=== PATIENT | male | born 1955 | race Caucasian/White ===

== ENCOUNTER 2018-04-07 03:21 | Inpatient (IN) | payer MEDICARE, MEDICAID ==
--- NOTE | 2018-04-07 03:50 | ED Physician Chart ---
ED Chief Complaint/HPI - Patient Information Date Seen:: 04/07/18 Time Seen:: 03:46 Chief Complaint:: fever History of Present Illness:: this is a 62 yr old male sent from a snf for an evaluation and treatment of a fever. Allergies:: Allergies Allergy/AdvReac Type Severity Reaction Status Date / Time No Known Allergies Allergy Verified 04/07/18 03:36 Historian:: Medical Records Review:: Nurse's Note Reviewed, Old Chart Reviewed ED Review of Systems - Review of Systems General/Constitutional: No fever, No chills, No weight loss, No weakness, No diaphoresis, No edema, No loss of appetite, Other (this patient is unable to give a review of systems.) Skin: No skin lesions, No rash, No bruising Head: No headache, No light-headedness Eyes: No loss of vision, No pain, No diplopia ENT: No earache, No nasal drainage, No sore throat, No tinnitus Neck: No neck pain, No swelling, No thyromegaly, No stiffness, No mass noted Cardio Vascular: No chest pain, No palpitations, No PND, No orthopnea, No edema Pulmonary: No SOB, No cough, No sputum, No wheezing GI: No nausea, No vomiting, No diarrhea, No pain, No melena, No hematochezia, No constipation, No hematemesis G/U: No dysuria, No frequency, No hematuria Musculoskeletal: No bone or joint pain, No back pain, No muscle pain Endocrine: No polyuria, No polydipsia Psychiatric: No prior psych history, No depression, No anxiety, No suicidal ideation Hematopoietic: No bruising, No lymphadenopathy Allergic/Immuno: No urticaria, No angioedema Neurological: No syncope, No focal symptoms, No weakness, No paresthesia, No headache, No seizure, No dizziness, No confusion, No vertigo ED Past Medical History - Past Medical History Obtainable: Yes Past Medical History: HTN, Dyslipidemia, Seizures, Thyroid disorder, Dementia Family History: None Social History: Non Smoker, No Alcohol, No Drug Use, Care Facility Surgical History: None Psychiatricy History: Schizophrenia, Dementia Medication: Reviewed Family Medical History - Family Member Mother History Unknown: Yes ED Physical Exam - Physical Examination General/Constitutional: Awake, Well-developed, well-nourished, Alert, No distress, GCS 15, Non-toxic appearing, Ambulatory Other Gen/Cons comments:: screaming and combative Head: Atraumatic Eyes: Lids, conjuctiva normal, PERRL, EOMI Skin: Nl inspection, No rash, No skin lesions, No ecchymosis, Well hydrated, No lymphadenopathy ENMT: External ears, nose nl, Nasal exam nl, Lips, teeth, gums nl Neck: Nontender, Full ROM w/o pain, No JVD, No nuchal rigidity, No bruit, No mass, No stridor Respiratory: Nl effort/Exclusion, Clear to Auscultation, No Wheeze/Rhonchi/Rales Cardio Vascular: RRR, No murmur, gallop, rubs, NL S1 S2 GI: No tenderness/rebounding/guarding, No organomegaly, No hernia, Normal BS's, Nondistended, No mass/bruits, No McBurney tenderness : No CVA tenderness Extremities: No tenderness or effusion, Full ROM, normal strength in all extremities, No edema, Normal digits & nails Neuro/Psych: Alert/oriented, DTR's symmetric, Normal sensory exam, Normal motor strength, Judgement/insight normal, Mood normal, Normal gait, No focal deficits Misc: Normal back, No paraspinal tenderness ED Labs/Radiology/EKG Results - EKG Interpretations EKG Time:: 04:14 Rate & Rhythm: rate= 119, sinus [place]: right axis ED Assessment - Assessment General Assessment: hypoxemia fever dementia ED Septic Shock - . Is Septic Shock (SBP<90, OR Lactate>4 mmol\L) present?: No ED Reassessment (Disposition) - Diagnosis Diagnosis:: hypoxemia - Patient Disposition Discharge/Transfer:: Acute Care w/in this hosp Admitted to:: Telemetry Admitting Medical Physician:: José Miguel Gautam Condition at Disposition:: Improved
[2018-04-07] MEDS ORDERED: Sodium Chloride 0.45% 1,000 ML IV ONE (03:59)
[2018-04-07 04:10] LABS: PaCO2 41.8 mmHg (35.0-45.0); pH 7.39 (7.35-7.45)
[2018-04-07 04:37] LABS: % BASOPHILS 0.2 % (0.0-2.0); % EOSINOPHILS 0.2 % (0.0-5.0); % LYMPHOCYTES 10.3 % (20.0-50.0); % MONOCYTES 7.6 % (2.0-10.0); % NEUTROPHILS 81.7 % (40.0-80.0); HEMATOCRIT 44.1 % (41.0-60); HEMOGLOBIN 14.4 gm/dL (12-16); LYMPHOCYTE ABSOLUTE 0.9 Th/cmm (1.5-3.0); MEAN CELL VOLUME 89.9 fl (80-99); MEAN CORPUSCULAR HEMOGLOBIN 29.2 pg (26.0-30.0); MEAN CORPUSCULAR HGB CONC 32.5 pg (28.0-36.0); MEAN PLATELET VOLUME 8.8 fl; MONOCYTE ABSOLUTE 0.7 Th/cmm (0.3-1.0); NEUTROPHILE ABSOLUTE 7.1 Th/cmm (1.8-8.0); PLATELET COUNT 217 Th/cmm (150-400); RED BLOOD COUNT 4.91 Mil/cmm (4.30-5.70); RED CELL DISTRIBUTION WIDTH 14.5 % (11.5-20.0); WHITE BLOOD COUNT 8.7 Th/cmm (4.8-10.8)
[2018-04-07 04:38] LABS: ALB/GLOB RATIO 1.4 (1.0-1.8); ALBUMIN 3.1 gm/dL (4.2-5.5); ANION GAP 11.1 (7.0-16.0); BILIRUBIN,TOTAL 0.5 mg/dL (0.3-1.0); BUN - UREA NITROGEN 26 mg/dL (7-25); CALCIUM SERUM 9.6 mg/dL (8.6-10.3); CARBON DIOXIDE 24.5 mEq/L (21.0-31.0); CHLORIDE 105 mEq/L (98-107); GLUCOSE 110 mg/dL (70-105); POTASSIUM SERUM 4.6 mEq/L (3.5-5.1); SGOT 16 U/L (13-39); SGPT/ALT 9 U/L (7-52); SODIUM SERUM 136 mEq/L (136-145); TOTAL PROTEIN,SERUM 5.4 gm/dL (6.0-8.3)
[2018-04-07 04:39] LABS: ALKALINE PHOSPHATASE 49 U/L (34-104); INR 1.09 (0.5-1.4); PROTHROMBIN TIME (TEST) 11.3 SECONDS (9.5-11.5)
[2018-04-07] MEDS ORDERED: Haloperidol Lactate 5 mg/mL 1mL Vial IM ONE (05:09)
[2018-04-07] MEDS ORDERED: Haloperidol Lactate 5 mg/mL 1mL Vial ONE (06:16)
[2018-04-07] MEDS ORDERED: Pantoprazole 80 MG in Sodium Chloride 0.9% 100 ML IV ONE (07:14)
[2018-04-07] MEDS ORDERED: Pantoprazole 80 MG in Sodium Chloride 0.9% 100 ML IV SCH (07:15)
[2018-04-07 07:42] LABS: MAGNESIUM 1.6 mg/dL (1.9-2.7); PHOSPHOROUS 2.4 mg/dL (2.5-5.0)
[2018-04-07 07:54] LABS: CREATININE - SERUM 1.1 mg/dL (0.7-1.3); GFR AFRICAN-AMERICAN > 60.0 ml/min (>90); GFR NON AFRICAN-AMERICAN > 60.0 ml/min
[2018-04-07 08:17] LABS: URINE BILIRUBIN NEGATIVE (NEGATIVE); URINE BLOOD MODERATE (NEGATIVE); URINE GLUCOSE (UA) NEGATIVE (NEGATIVE); URINE KETONE NEGATIVE (NEGATIVE); URINE LEUKOCYTE ESTERASE SMALL (NEGATIVE); URINE MICROSCOPIC INDICATED? YES; URINE NITRATE NEGATIVE (NEGATIVE); URINE PROTEIN 100 mg/dL (NEGATIVE); URINE SOURCE CATH; URINE UROBILINOGEN 0.2 E.U./dL (0.2 - 1.0)
[2018-04-07 08:31] LABS: URINE CLARITY CLOUDY (CLEAR); URINE COLOR YELLOW
[2018-04-07 08:34] LABS: URINE BACTERIA OCCASIONAL /hpf (NONE SEEN); URINE EPITHELIAL CELLS RARE /lpf (FEW); URINE WBC 50-100 /hpf (0-5)
[2018-04-07] MEDS ORDERED: Magnesium Sulfate 1 gm/2 mL 2mL Vial IV ONE (08:35)
[2018-04-07] MEDS ORDERED: guaiFENesin 200 MG/10 ML UDC PO PRN (09:54)
[2018-04-07] MEDS ORDERED: Ipratropium Neb 0.5 mg/2.5 mL UD HHN PRN (09:54)
[2018-04-07] MEDS ORDERED: Magnesium Hydroxide (MOM) 30 mL UDC PO PRN (09:54)
[2018-04-07] MEDS ORDERED: Fleet Enema 135 mL RC PRN (09:54)
--- NOTE | 2018-04-07 10:04 | Diagnostic Imaging Report ---
Exam: Chest x-ray HISTORY: Hypothermia Findings: Frontal examination of the chest was reviewed compared to prior study 04/03/2018 demonstrates no active pulmonic infiltrates or effusions. IMPRESSION no acute disease.
[2018-04-07] MEDS ORDERED: Albuterol Nebulizer 2.5mg/3mL HHN ONE (11:19)
[2018-04-07] MEDS ORDERED: Ipratropium Neb 0.5 mg/2.5 mL UD HHN ONE (11:19)
[2018-04-07] MEDS: Albuterol Nebulizer 2.5mg/3mL HHN SCH ×3 (11:20→19:03)
[2018-04-07] MEDS: Ipratropium Neb 0.5 mg/2.5 mL UD IH SCH ×3 (11:20→19:03)
[2018-04-07] MEDS: D5-0.45NS 1,000 ML IV SCH (11:35)
[2018-04-07] MEDS ORDERED: Potassium Phosphate 30 MMOLE in Sodium Chloride 0.9% 250 ML IV ONE (12:14)
--- NOTE | 2018-04-07 13:10 | History & Physical ---
ADMIT DATE: 04/07/2018 CHIEF COMPLAINT: Fever and coffee-ground emesis. HISTORY OF PRESENT ILLNESS: This is a 62-year-old male, well known to my service, recently discharged to nursing facility, apparently developed fever of 101. The patient also noted to have a low oxygen saturation, pO2 of 60. The patient is not verbal and not interactive. PAST MEDICAL HISTORY: As mentioned in history of present illness. PAST SURGICAL HISTORY: Unable to obtain from the patient. ALLERGIES: No known drug allergies. MEDICATIONS: Depakote, clonazepam, Tylenol, aspirin, Bisacodyl, Pulmicort, Lexapro, guaifenesin, Synthroid, lorazepam, nitroglycerin, Zofran, pantoprazole, trazodone, and Ambien. FAMILY HISTORY: Noncontributory. SOCIAL HISTORY: The patient is a [facility] patient requiring 24-hour total care. The patient was ____ care. We will also try to get information from other family member, Steffanie ____ [phone]. PHYSICAL EXAMINATION: VITAL SIGNS: Blood pressure 160/67, respirations 20, pulse 102, temperature 98.6. GENERAL: Elderly male, appears chronically ill. NECK: Supple. No mass. LUNGS: Equal breath sounds, few rhonchi. HEART: Regular rate and rhythm with systolic ejection murmur. ABDOMEN: Soft, globular, positive bowel sounds. EXTREMITIES: Positive excoriation. NEUROLOGIC: Limited. LABORATORY DATA: WBC 8, hemoglobin 14, platelets 217, pO2 of 60. Sodium 137, potassium 4.6, BUN 26, creatinine 1.1, blood sugar 110. Magnesium ____, albumin 3.1. UA shows 100 wbc's. ASSESSMENT AND PLAN: Fever and urinary tract infection, possible sepsis, possible aspiration, possible pneumonia, dysphagia, hypertension, schizoaffective disorder, hyperkalemia, renal insufficiency, possible GI bleeding. Continue the patient also on bronchodilator treatment. We will check a chest x-ray. Continue IV antibiotic. We will follow the patient's urine culture as well. We will perform chest x-ray in the morning. Continue with current care. We will follow consultants' recommendations. We will refer the patient to Psychiatry as well. JOB# [id number]
[2018-04-07 14:56] VITALS: BP 145/97
[2018-04-07] MEDS: Budesonide 0.5 Mg/2 mL Ud HHN SCH (19:03)
[2018-04-07] MEDS ORDERED: TERAZOSIN HCL 2 MG PO SCH (21:00)
[2018-04-08 05:16] LABS: % BASOPHILS 0.1 % (0.0-2.0); % EOSINOPHILS 1.5 % (0.0-5.0); % LYMPHOCYTES 20.8 % (20.0-50.0); % MONOCYTES 10.7 % (2.0-10.0); % NEUTROPHILS 66.9 % (40.0-80.0); EOSINOPHILE ABSOLUTE 0.1 Th/cmm (0.1-0.4); HEMATOCRIT 36.7 % (41.0-60); HEMOGLOBIN 12.3 gm/dL (12-16); LYMPHOCYTE ABSOLUTE 1.2 Th/cmm (1.5-3.0); MEAN CELL VOLUME 91.3 fl (80-99); MEAN CORPUSCULAR HEMOGLOBIN 30.6 pg (26.0-30.0); MEAN CORPUSCULAR HGB CONC 33.5 pg (28.0-36.0); MEAN PLATELET VOLUME 8.2 fl; MONOCYTE ABSOLUTE 0.6 Th/cmm (0.3-1.0); NEUTROPHILE ABSOLUTE 3.8 Th/cmm (1.8-8.0); PLATELET COUNT 179 Th/cmm (150-400); RED BLOOD COUNT 4.02 Mil/cmm (4.30-5.70); RED CELL DISTRIBUTION WIDTH 14.3 % (11.5-20.0); WHITE BLOOD COUNT 5.7 Th/cmm (4.8-10.8)
[2018-04-08 05:58] LABS: ANION GAP 9.8 (7.0-16.0); BUN - UREA NITROGEN 17 mg/dL (7-25); CALCIUM SERUM 8.9 mg/dL (8.6-10.3); CARBON DIOXIDE 27.3 mEq/L (21.0-31.0); CHLORIDE 102 mEq/L (98-107); CREATININE - SERUM 0.8 mg/dL (0.7-1.3); GFR AFRICAN-AMERICAN > 60.0 ml/min (>90); GFR NON AFRICAN-AMERICAN > 60.0 ml/min; GLUCOSE 97 mg/dL (70-105); MAGNESIUM 1.6 mg/dL (1.9-2.7); PHOSPHOROUS 2.5 mg/dL (2.5-5.0); POTASSIUM SERUM 4.1 mEq/L (3.5-5.1); SODIUM SERUM 135 mEq/L (136-145)
[2018-04-08] MEDS: Pantoprazole 40 mg EC Tab PO SCH (06:47)
[2018-04-08] MEDS: Levothyroxine 0.025 Mg Tab PO SCH (06:47)
[2018-04-08] MEDS: Budesonide 0.5 Mg/2 mL Ud HHN SCH ×2 (07:35→19:21)
[2018-04-08] MEDS: Albuterol Nebulizer 2.5mg/3mL HHN SCH ×4 (07:35→19:21)
[2018-04-08] MEDS: Ipratropium Neb 0.5 mg/2.5 mL UD IH SCH ×4 (07:35→19:21)
--- NOTE | 2018-04-08 08:56 | Consultation ---
DATE OF CONSULTATION: 04/07/2018 REASON FOR CONSULTATION: GI bleed. HISTORY OF PRESENT ILLNESS: This consult was obtained through the courtesy of Dr. Gautam for this 62-year-old with history of hypertension, hyperlipidemia, hypothyroidism, psych disorder, transferred back because of coffee-ground emesis. The patient lives in an assisted living. He was here for failure to thrive, but it improved. He was discharged yesterday, coming again today with coffee-ground emesis. The patient is not able to provide any history, but he denies any active complaint. PAST MEDICAL HISTORY: Hypertension, hypothyroidism, hyperlipidemia, psych disorder. PAST SURGICAL HISTORY: Not known. SOCIAL HISTORY: Nonsmoker, nonalcoholic, IV drug abuser. FAMILY HISTORY: Noncontributory. ALLERGIES: No known drug allergies. MEDICATIONS: The patient is on Tylenol, albuterol, aspirin, aztreonam, Dulcolax, Pulmicort, cefepime, Depakote, Lexapro, Robitussin, Atrovent, Synthroid, Ativan, milk of magnesia, Nitrostat, Zofran, Protonix, Seroquel, Fleets enema, Ambien. REVIEW OF SYSTEMS: Unobtainable. PHYSICAL EXAMINATION: GENERAL: The patient is awake, oriented to self. VITAL SIGNS: Blood pressure is 139/100, heart rate 104, respiratory rate 21, temperature is 99.2. HEAD AND NECK: Pupils reactive to light. Extraocular muscles could not be tested. Oral cavity, dry mucous membrane. NECK: Supple. CHEST: Good air entry. LUNGS: Clear to auscultation. CARDIOVASCULAR SYSTEM: Regular rate and rhythm. No murmur or gallop. ABDOMEN: Soft, positive bowel sounds, not tender, not distended. Bowel sounds are present. EXTREMITIES: Lower extremities, no edema. CENTRAL NERVOUS SYSTEM: The patient moving 4 extremities. LABS: CBC was unremarkable. Chemistry showed BUN of 26, phosphorus 2.4, magnesium 1.6. Albumin is 3.1. Urine showed 100 mg protein, 5-10 rbc's, 50-100 white blood cells, valproic acid was 9.7. IMPRESSION: A 62-year-old sent from alf for fever, now with coffee-ground emesis. ASSESSMENT AND PLAN: 1. Coffee-ground emesis, could be from gastritis, could be small ulcer, could be Funmilayo-Villagomez tear, could be peptic ulcer disease, less likely upper gastrointestinal malignancy. RECOMMENDATIONS: 1. Monitor hemoglobin and hematocrit. 2. Transfuse as needed. 3. Continue with Protonix. 4. Once the fever issue is sorted out. Consideration will be for an upper endoscopy. 2. Fever. It seems the patient might have a urinary tract infection. He is on antibiotics. Culture has been sent. Further plan as per Dr. Gautam. Other medical problems such as hypertension, hyperlipidemia, hypothyroidism and Psych disorder as per Dr. Gautam. Thank you, Dr. Gautam, for allowing me to participate in the care of the patient. If you have any further questions, please let me know. JOB# [id number]
--- NOTE | 2018-04-08 09:07 | GI Progress Note ---
Subjective - Review of Systems Service Date: 04/08/18 Subjective: Eating, no further coffee ground emesis Objective - Results Result Diagrams: 04/08/18 04:35 04/08/18 04:35 Recent Labs: Laboratory Last Values WBC 5.7 Th/cmm (4.8-10.8) 04/08/18 04:35 RBC 4.02 Mil/cmm (4.30-5.70) L 04/08/18 04:35 Hgb 12.3 gm/dL (12-16) 04/08/18 04:35 Hct 36.7 % (41.0-60) L 04/08/18 04:35 MCV 91.3 fl (80-99) 04/08/18 04:35 MCH 30.6 pg (26.0-30.0) H 04/08/18 04:35 MCHC Differential 33.5 pg (28.0-36.0) 04/08/18 04:35 RDW 14.3 % (11.5-20.0) 04/08/18 04:35 Plt Count 179 Th/cmm (150-400) 04/08/18 04:35 MPV 8.2 fl 04/08/18 04:35 Neutrophils % 66.9 % (40.0-80.0) 04/08/18 04:35 Lymphocytes % 20.8 % (20.0-50.0) 04/08/18 04:35 Monocytes % 10.7 % (2.0-10.0) H 04/08/18 04:35 Eosinophils % 1.5 % (0.0-5.0) 04/08/18 04:35 Basophils % 0.1 % (0.0-2.0) 04/08/18 04:35 PT 11.3 SECONDS (9.5-11.5) 04/07/18 04:00 INR 1.09 (0.5-1.4) 04/07/18 04:00 Specimen Source arterial 04/07/18 03:39 Sample Site left brachial 04/07/18 03:39 pH 7.39 (7.35-7.45) 04/07/18 03:39 pCO2 41.8 mmHg (35.0-45.0) 04/07/18 03:39 pO2 60.0 mmHg (80.0-100.0) L 04/07/18 03:39 HCO3 25.1 mEq/L (20.0-26.0) 04/07/18 03:39 Base Excess 0.1 mEq/L (-3.0-3.0) 04/07/18 03:39 O2 Saturation 90.0 % (92.0-100.0) L 04/07/18 03:39 Pasha Test n/a 04/07/18 03:39 Vent Rate n/a 04/07/18 03:39 Inspired O2 28 04/07/18 03:39 Tidal Volume n/a 04/07/18 03:39 PEEP n/a 04/07/18 03:39 Pressure (ins/psv/peep) n/a 04/07/18 03:39 Critical Value abroedel 04/07/18 03:39 Sodium 135 mEq/L (136-145) L 04/08/18 04:35 Potassium 4.1 mEq/L (3.5-5.1) 04/08/18 04:35 Chloride 102 mEq/L (98-107) 04/08/18 04:35 Carbon Dioxide 27.3 mEq/L (21.0-31.0) 04/08/18 04:35 Anion Gap 9.8 (7.0-16.0) 04/08/18 04:35 BUN 17 mg/dL (7-25) 04/08/18 04:35 Creatinine 0.8 mg/dL (0.7-1.3) 04/08/18 04:35 Est GFR ( Amer) > 60.0 ml/min (>90) 04/08/18 04:35 Est GFR (Non-Af Amer) > 60.0 ml/min 04/08/18 04:35 BUN/Creatinine Ratio 21.3 04/08/18 04:35 Glucose 97 mg/dL (70-105) 04/08/18 04:35 Whole Bld Lactic Acid 1.95 mmol/L (0.60-1.99) 04/07/18 07:19 Calcium 8.9 mg/dL (8.6-10.3) 04/08/18 04:35 Phosphorus 2.5 mg/dL (2.5-5.0) 04/08/18 04:35 Magnesium 1.6 mg/dL (1.9-2.7) L 04/08/18 04:35 Total Bilirubin 0.5 mg/dL (0.3-1.0) 04/07/18 04:00 AST 16 U/L (13-39) 04/07/18 04:00 ALT 9 U/L (7-52) 04/07/18 04:00 Alkaline Phosphatase 49 U/L (34-104) 04/07/18 04:00 Ammonia 42 umol/L (16-53) 04/07/18 04:00 Troponin I 0.01 ng/mL (0.01-0.05) 04/07/18 04:00 B-Natriuretic Peptide 31.4 pg/mL (5.0-100.0) 04/08/18 04:35 Total Protein 5.4 gm/dL (6.0-8.3) L 04/07/18 04:00 Albumin 3.1 gm/dL (4.2-5.5) L 04/07/18 04:00 Globulin 2.3 gm/dL 04/07/18 04:00 Albumin/Globulin Ratio 1.4 (1.0-1.8) 04/07/18 04:00 TSH 2.19 uIU/ml (0.34-5.60) 04/07/18 04:00 Urine Source CATH 04/07/18 08:00 Urine Color YELLOW 04/07/18 08:00 Urine Clarity CLOUDY (CLEAR) 04/07/18 08:00 Urine pH 6.0 (4.6 - 8.0) 04/07/18 08:00 Ur Specific [place] >= 1.030 (1.005-1.030) 04/07/18 08:00 Urine Protein 100 mg/dL (NEGATIVE) H 04/07/18 08:00 Urine Glucose (UA) NEGATIVE mg/dL (NEGATIVE) 04/07/18 08:00 Urine Ketones NEGATIVE mg/dL (NEGATIVE) 04/07/18 08:00 Urine Blood MODERATE (NEGATIVE) H 04/07/18 08:00 Urine Nitrate NEGATIVE (NEGATIVE) 04/07/18 08:00 Urine Bilirubin NEGATIVE (NEGATIVE) 04/07/18 08:00 Urine Urobilinogen 0.2 E.U./dL (0.2 - 1.0) 04/07/18 08:00 Ur Leukocyte Esterase SMALL (NEGATIVE) H 04/07/18 08:00 Urine RBC 5-10 /hpf (0-5) H 04/07/18 08:00 Urine WBC 50-100 /hpf (0-5) H 04/07/18 08:00 Ur Epithelial Cells RARE /lpf (FEW) 04/07/18 08:00 Urine Bacteria OCCASIONAL /hpf (NONE SEEN) 04/07/18 08:00 Valproic Acid 49.7 ug/mL (50.0-100.0) L 04/07/18 04:00 - Physical Exam Vitals and I&O: Vital Signs Temp 98.2 F 04/08/18 08:00 Pulse 111 04/08/18 08:00 Resp 18 04/08/18 08:00 BP 138/73 04/08/18 08:00 Pulse Ox 98 04/08/18 08:00 Intake & Output 04/07/18 04/08/18 04/08/18 18:59 06:59 18:59 Intake Total 2258.667 563.333 Balance 2258.667 563.333 Weight (lbs) 73.21 kg 74.843 kg Intake: Intake, IV Amount 2158.667 453.333 Cefepime 1 gm In Dextrose 50 5% 50 ml @ 100 mls/hr IV Q12HR [facility] Rx#:[id number] D5-0.45NS 1,000 ml @ 80 546.667 453.333 mls/hr IV .[id number] [facility] Rx #:[id number] Pantoprazole 80 mg In 100 Sodium Chloride 0.9% 100 ml @ 10 mls/hr IV Q10H [facility] Rx#:[id number] Oral 100 110 Other: # Voids 2 3 # Bowel Movements 0 0 Weight Source Bedscale Bedscale Active Medications: Current Medications Acetaminophen (Tylenol) 650 mg PO Q4H PRN PRN Reason: Mild Pain 1-3/ Fever above 101 Stop: 06/06/18 09:53 Albuterol Sulfate (Albuterol 2.5mg/3ml Neb Ud) 2.5 mg HHN QIDRT [facility] Stop: 06/06/18 10:59 Last Admin: 04/08/18 07:35 Dose: 2.5 mg Aspirin (Ecotrin) 81 mg PO DAILY [facility] Stop: 06/07/18 08:59 Bisacodyl (Dulcolax 10 Mg Supp) 10 mg RC DAILY PRN PRN Reason: Constipation Stop: 06/06/18 09:53 Budesonide (Pulmicort) 0.5 mg HHN BIDRT [facility] Stop: 06/06/18 18:59 Last Admin: 04/08/18 07:35 Dose: 0.5 mg Divalproex Sodium (Depakote Dr) 250 mg PO TID [facility]; Protocol Stop: 06/06/18 13:59 Last Admin: 04/07/18 20:59 Dose: 250 mg Escitalopram Oxalate (Lexapro) 10 mg PO DAILY [facility]; Protocol Stop: 06/07/18 08:59 Guaifenesin (Robitussin) 200 mg PO Q4HR PRN PRN Reason: Cough or Congestion Stop: 06/06/18 09:53 Cefepime HCl 1 gm/ Dextrose 50 mls @ 100 mls/hr IV Q12HR [facility] Stop: 06/06/18 09:59 Last Admin: 04/07/18 20:55 Dose: 100 mls/hr Dextrose/Sodium Chloride (D5-0.45ns) 1,000 mls @ 80 mls/hr IV .[id number] [facility] Stop: 06/06/18 09:59 Last Infusion: 04/08/18 06:59 Dose: Infused Ipratropium [place] (Atrovent Neb 0.5mg/2.5ml) 0.5 mg HHN Q2HRT PRN PRN Reason: Shortness of Breath or Wheeze Stop: 06/06/18 09:53 Ipratropium [place] (Atrovent Neb 0.5mg/2.5ml) 0.5 mg IH QIDRT [facility] Stop: 06/06/18 10:59 Last Admin: 04/08/18 07:35 Dose: 0.5 mg Levothyroxine Sodium (Synthroid) 0.025 mg PO QDAC [facility] Stop: 06/07/18 07:29 Last Admin: 04/08/18 06:47 Dose: 0.025 mg Lorazepam (Ativan) 0.5 mg PO Q6HR PRN; Protocol PRN Reason: Agitation Stop: 06/06/18 09:53 Last Admin: 04/08/18 01:38 Dose: 0.5 mg Magnesium Hydroxide (Milk Of Magnesia) 30 ml PO DAILY PRN PRN Reason: Constipation Stop: 04/11/19 09:53 Nitroglycerin (Nitrostat) 0.4 mg SL Q5MIN PRN PRN Reason: Chest Pain Stop: 06/06/18 09:53 Ondansetron HCl (Zofran) 4 mg IV Q8H PRN PRN Reason: Nausea / Vomiting Stop: 06/06/18 09:53 Pantoprazole Sodium (Protonix) 40 mg PO QDAC [facility] Stop: 06/07/18 07:29 Last Admin: 04/08/18 06:47 Dose: 40 mg Quetiapine Fumarate (Seroquel) 100 mg PO TID [facility]; Protocol Stop: 06/06/18 13:59 Sodium Phosphate (Fleet Enema) 135 ml RC DAILY PRN PRN Reason: Constipation Stop: 06/06/18 09:53 Terazosin HCl (Hytrin) 2 mg PO HS [facility] Stop: 06/06/18 20:59 Last Admin: 04/07/18 20:58 Dose: 2 mg Trazodone HCl (Desyrel) 300 mg PO HS [facility] Stop: 06/06/18 20:59 Zolpidem Tartrate (Ambien) 10 mg PO HS PRN PRN Reason: Insomnia Stop: 06/06/18 09:53 General: Alert HEENT: Atraumatic Cardiovascular: Regular rate Abdomen: Bowel sounds, Soft, no Tender, no Hepatomegaly, no Splenomegaly, no Distended, no Rebound, no Mass, no Guarding Extremities: no Clubbing, no Cyanosis Skin: no Rash Assessment/Plan - Assessment Assessment: # Hx coffee ground material on pt's mouth # Fever # Dementia At this point, pt has not vomited or shown any evidence of active GI bleed since admission. By report, this was not a large GI bleed event. EGD is not necessary in this setting unless he shows further evidence of GI bleed (ie hematemesis, melena, or more coffee ground material). Treat conservatively with PPI for now Plan: - PPI at bid dosing for 1 month, then descale to daily dosing. Conservative mgmt - diet as tolerated by pt - if any more coffee ground, or any GI bleed, we can perform EGD while here - cont supportive measures as per primary
[2018-04-08] MEDS ORDERED: Albuterol Nebulizer 2.5mg/3mL HHN ONE (10:23)
[2018-04-08] MEDS ORDERED: Ipratropium Neb 0.5 mg/2.5 mL UD HHN ONE (10:23)
[2018-04-08] MEDS: D5-0.45NS 1,000 ML IV SCH (10:35)
[2018-04-08] MEDS ORDERED: Mag Sulfate 2gm/50mL Premix 2 GM/50 ML BAG IV ONE (13:08)
--- NOTE | 2018-04-08 13:10 | Internal Medicine Prog Note ---
Internal Medicine Subjective - Subjective Patient seen and examined:: with staff, chart reviewed Patient is:: asleep, non-verbal, non-interactive, eyes closed, in bed Patient Complaints of:: congestion, cough Per staff patient has:: no adverse event, no episodes of fall, poor appetite Internal Medicine Objective - Results Result Diagrams: 04/08/18 04:35 04/08/18 04:35 Recent Labs: Laboratory Last Values WBC 5.7 Th/cmm (4.8-10.8) 04/08/18 04:35 RBC 4.02 Mil/cmm (4.30-5.70) L 04/08/18 04:35 Hgb 12.3 gm/dL (12-16) 04/08/18 04:35 Hct 36.7 % (41.0-60) L 04/08/18 04:35 MCV 91.3 fl (80-99) 04/08/18 04:35 MCH 30.6 pg (26.0-30.0) H 04/08/18 04:35 MCHC Differential 33.5 pg (28.0-36.0) 04/08/18 04:35 RDW 14.3 % (11.5-20.0) 04/08/18 04:35 Plt Count 179 Th/cmm (150-400) 04/08/18 04:35 MPV 8.2 fl 04/08/18 04:35 Neutrophils % 66.9 % (40.0-80.0) 04/08/18 04:35 Lymphocytes % 20.8 % (20.0-50.0) 04/08/18 04:35 Monocytes % 10.7 % (2.0-10.0) H 04/08/18 04:35 Eosinophils % 1.5 % (0.0-5.0) 04/08/18 04:35 Basophils % 0.1 % (0.0-2.0) 04/08/18 04:35 PT 11.3 SECONDS (9.5-11.5) 04/07/18 04:00 INR 1.09 (0.5-1.4) 04/07/18 04:00 Specimen Source arterial 04/07/18 03:39 Sample Site left brachial 04/07/18 03:39 pH 7.39 (7.35-7.45) 04/07/18 03:39 pCO2 41.8 mmHg (35.0-45.0) 04/07/18 03:39 pO2 60.0 mmHg (80.0-100.0) L 04/07/18 03:39 HCO3 25.1 mEq/L (20.0-26.0) 04/07/18 03:39 Base Excess 0.1 mEq/L (-3.0-3.0) 04/07/18 03:39 O2 Saturation 90.0 % (92.0-100.0) L 04/07/18 03:39 Pasha Test n/a 04/07/18 03:39 Vent Rate n/a 04/07/18 03:39 Inspired O2 28 04/07/18 03:39 Tidal Volume n/a 04/07/18 03:39 PEEP n/a 04/07/18 03:39 Pressure (ins/psv/peep) n/a 04/07/18 03:39 Critical Value abroedel 04/07/18 03:39 Sodium 135 mEq/L (136-145) L 04/08/18 04:35 Potassium 4.1 mEq/L (3.5-5.1) 04/08/18 04:35 Chloride 102 mEq/L (98-107) 04/08/18 04:35 Carbon Dioxide 27.3 mEq/L (21.0-31.0) 04/08/18 04:35 Anion Gap 9.8 (7.0-16.0) 04/08/18 04:35 BUN 17 mg/dL (7-25) 04/08/18 04:35 Creatinine 0.8 mg/dL (0.7-1.3) 04/08/18 04:35 Est GFR ( Amer) > 60.0 ml/min (>90) 04/08/18 04:35 Est GFR (Non-Af Amer) > 60.0 ml/min 04/08/18 04:35 BUN/Creatinine Ratio 21.3 04/08/18 04:35 Glucose 97 mg/dL (70-105) 04/08/18 04:35 Whole Bld Lactic Acid 1.95 mmol/L (0.60-1.99) 04/07/18 07:19 Calcium 8.9 mg/dL (8.6-10.3) 04/08/18 04:35 Phosphorus 2.5 mg/dL (2.5-5.0) 04/08/18 04:35 Magnesium 1.6 mg/dL (1.9-2.7) L 04/08/18 04:35 Total Bilirubin 0.5 mg/dL (0.3-1.0) 04/07/18 04:00 AST 16 U/L (13-39) 04/07/18 04:00 ALT 9 U/L (7-52) 04/07/18 04:00 Alkaline Phosphatase 49 U/L (34-104) 04/07/18 04:00 Ammonia 42 umol/L (16-53) 04/07/18 04:00 Troponin I 0.01 ng/mL (0.01-0.05) 04/07/18 04:00 B-Natriuretic Peptide 31.4 pg/mL (5.0-100.0) 04/08/18 04:35 Total Protein 5.4 gm/dL (6.0-8.3) L 04/07/18 04:00 Albumin 3.1 gm/dL (4.2-5.5) L 04/07/18 04:00 Globulin 2.3 gm/dL 04/07/18 04:00 Albumin/Globulin Ratio 1.4 (1.0-1.8) 04/07/18 04:00 TSH 2.19 uIU/ml (0.34-5.60) 04/07/18 04:00 Urine Source CATH 04/07/18 08:00 Urine Color YELLOW 04/07/18 08:00 Urine Clarity CLOUDY (CLEAR) 04/07/18 08:00 Urine pH 6.0 (4.6 - 8.0) 04/07/18 08:00 Ur Specific [place] >= 1.030 (1.005-1.030) 04/07/18 08:00 Urine Protein 100 mg/dL (NEGATIVE) H 04/07/18 08:00 Urine Glucose (UA) NEGATIVE mg/dL (NEGATIVE) 04/07/18 08:00 Urine Ketones NEGATIVE mg/dL (NEGATIVE) 04/07/18 08:00 Urine Blood MODERATE (NEGATIVE) H 04/07/18 08:00 Urine Nitrate NEGATIVE (NEGATIVE) 04/07/18 08:00 Urine Bilirubin NEGATIVE (NEGATIVE) 04/07/18 08:00 Urine Urobilinogen 0.2 E.U./dL (0.2 - 1.0) 04/07/18 08:00 Ur Leukocyte Esterase SMALL (NEGATIVE) H 04/07/18 08:00 Urine RBC 5-10 /hpf (0-5) H 04/07/18 08:00 Urine WBC 50-100 /hpf (0-5) H 04/07/18 08:00 Ur Epithelial Cells RARE /lpf (FEW) 04/07/18 08:00 Urine Bacteria OCCASIONAL /hpf (NONE SEEN) 04/07/18 08:00 Valproic Acid 49.7 ug/mL (50.0-100.0) L 04/07/18 04:00 - Physical Exam Vitals and I&O: Vital Signs Temp 98.4 F 04/08/18 12:00 Pulse 114 04/08/18 12:00 Resp 18 04/08/18 12:00 BP 165/86 04/08/18 12:00 Pulse Ox 94 04/08/18 12:00 Intake & Output 04/07/18 04/08/18 04/08/18 18:59 06:59 18:59 Intake Total 2258.667 613.333 Balance 2258.667 613.333 Weight (lbs) 73.21 kg 74.843 kg Intake: Intake, IV Amount 2158.667 503.333 Cefepime 1 gm In Dextrose 50 50 5% 50 ml @ 100 mls/hr IV Q12HR [facility] Rx#:[id number] D5-0.45NS 1,000 ml @ 80 546.667 453.333 mls/hr IV .[id number] PANDA Rx #:[id number] Pantoprazole 80 mg In 100 Sodium Chloride 0.9% 100 ml @ 10 mls/hr IV Q10H [facility] Rx#:[id number] Oral 100 110 Other: # Voids 2 3 # Bowel Movements 0 0 Weight Source Bedscale Bedscale Active Medications: Current Medications Acetaminophen (Tylenol) 650 mg PO Q4H PRN PRN Reason: Mild Pain 1-3/ Fever above 101 Stop: 06/06/18 09:53 Albuterol Sulfate (Albuterol 2.5mg/3ml Neb Ud) 2.5 mg HHN QIDRT [facility] Stop: 06/06/18 10:59 Last Admin: 04/08/18 11:17 Dose: 2.5 mg Aspirin (Ecotrin) 81 mg PO DAILY [facility] Stop: 06/07/18 08:59 Last Admin: 04/08/18 10:30 Dose: 81 mg Bisacodyl (Dulcolax 10 Mg Supp) 10 mg RC DAILY PRN PRN Reason: Constipation Stop: 06/06/18 09:53 Budesonide (Pulmicort) 0.5 mg HHN BIDRT [facility] Stop: 06/06/18 18:59 Last Admin: 04/08/18 07:35 Dose: 0.5 mg Divalproex Sodium (Depakote Dr) 250 mg PO TID [facility]; Protocol Stop: 06/06/18 13:59 Last Admin: 04/08/18 10:29 Dose: 250 mg Escitalopram Oxalate (Lexapro) 10 mg PO DAILY [facility]; Protocol Stop: 06/07/18 08:59 Guaifenesin (Robitussin) 200 mg PO Q4HR PRN PRN Reason: Cough or Congestion Stop: 06/06/18 09:53 Cefepime HCl 1 gm/ Dextrose 50 mls @ 100 mls/hr IV Q12HR [facility] Stop: 06/06/18 09:59 Last Admin: 04/08/18 10:30 Dose: 100 mls/hr Dextrose/Sodium Chloride (D5-0.45ns) 1,000 mls @ 80 mls/hr IV .[id number] [facility] Stop: 06/06/18 09:59 Last Admin: 04/08/18 10:35 Dose: 80 mls/hr Magnesium Sulfate (Magnesium Sulfate Premix) 2 gm in 50 mls @ 25 mls/hr IV X1 ONE Stop: 04/08/18 15:07 Ipratropium [place] (Atrovent Neb 0.5mg/2.5ml) 0.5 mg HHN Q2HRT PRN PRN Reason: Shortness of Breath or Wheeze Stop: 06/06/18 09:53 Ipratropium [place] (Atrovent Neb 0.5mg/2.5ml) 0.5 mg IH QIDRT [facility] Stop: 06/06/18 10:59 Last Admin: 04/08/18 11:17 Dose: 0.5 mg Levothyroxine Sodium (Synthroid) 0.025 mg PO QDAC [facility] Stop: 06/07/18 07:29 Last Admin: 04/08/18 06:47 Dose: 0.025 mg Lorazepam (Ativan) 0.5 mg PO Q6HR PRN; Protocol PRN Reason: Agitation Stop: 06/06/18 09:53 Last Admin: 04/08/18 11:48 Dose: 0.5 mg Magnesium Hydroxide (Milk Of Magnesia) 30 ml PO DAILY PRN PRN Reason: Constipation Stop: 06/06/18 09:53 Nitroglycerin (Nitrostat) 0.4 mg SL Q5MIN PRN PRN Reason: Chest Pain Stop: 06/06/18 09:53 Ondansetron HCl (Zofran) 4 mg IV Q8H PRN PRN Reason: Nausea / Vomiting Stop: 06/06/18 09:53 Pantoprazole Sodium (Protonix) 40 mg PO QDAC [facility] Stop: 06/07/18 07:29 Last Admin: 04/08/18 06:47 Dose: 40 mg Quetiapine Fumarate (Seroquel) 100 mg PO TID [facility]; Protocol Stop: 06/06/18 13:59 Sodium Phosphate (Fleet Enema) 135 ml RC DAILY PRN PRN Reason: Constipation Stop: 06/06/18 09:53 Terazosin HCl (Hytrin) 2 mg PO HS [facility] Stop: 06/06/18 20:59 Last Admin: 04/07/18 20:58 Dose: 2 mg Trazodone HCl (Desyrel) 300 mg PO HS [facility] Stop: 06/06/18 20:59 Zolpidem Tartrate (Ambien) 10 mg PO HS PRN PRN Reason: Insomnia Stop: 06/06/18 09:53 General: congested, demented HEENT: NC/AT, PERRLA Neck: Supple, No JVD Lungs: congested, rales Cardiovascular: RRR, Normal S1, Normal S2, with murmur Abdomen: soft, non-tender, globular, non-distended, positive bowel sound Extremities: excoriation, contracture Internal Medicine Assmt/Plan - Assessment Assessment: ASSESSMENT AND PLAN: Fever and urinary tract infection, possible sepsis, possible aspiration, possible pneumonia, dysphagia, hypertension, schizoaffective disorder, hyperkalemia, renal insufficiency, possible GI bleeding. - Plan Plan: Continue the patient also on bronchodilator treatment. We will check a chest x-ray. Continue IV antibiotic. We will follow the patient's urine culture as well. We will perform chest x-ray in the morning. Continue with current care. We will follow consultants' recommendations. We will refer the patient to Psychiatry as well.
[2018-04-08 14:58] LABS: sO2c 90.9 % (92.0-100.0)
[2018-04-09] MEDS: D5-0.45NS 1,000 ML IV SCH (03:29)
[2018-04-09 04:58] LABS: % BASOPHILS 0.5 % (0.0-2.0); % EOSINOPHILS 4.6 % (0.0-5.0); % LYMPHOCYTES 21.1 % (20.0-50.0); % MONOCYTES 10.7 % (2.0-10.0); % NEUTROPHILS 63.1 % (40.0-80.0); EOSINOPHILE ABSOLUTE 0.3 Th/cmm (0.1-0.4); HEMATOCRIT 37.6 % (41.0-60); HEMOGLOBIN 12.6 gm/dL (12-16); LYMPHOCYTE ABSOLUTE 1.4 Th/cmm (1.5-3.0); MEAN CELL VOLUME 90.1 fl (80-99); MEAN CORPUSCULAR HEMOGLOBIN 30.2 pg (26.0-30.0); MEAN CORPUSCULAR HGB CONC 33.6 pg (28.0-36.0); MEAN PLATELET VOLUME 7.5 fl; MONOCYTE ABSOLUTE 0.7 Th/cmm (0.3-1.0); NEUTROPHILE ABSOLUTE 4.2 Th/cmm (1.8-8.0); PLATELET COUNT 201 Th/cmm (150-400); RED BLOOD COUNT 4.17 Mil/cmm (4.30-5.70); WHITE BLOOD COUNT 6.6 Th/cmm (4.8-10.8)
[2018-04-09 05:14] LABS: ANION GAP 7.7 (7.0-16.0); BUN - UREA NITROGEN 9 mg/dL (7-25); CALCIUM SERUM 9.1 mg/dL (8.6-10.3); CARBON DIOXIDE 33.2 mEq/L (21.0-31.0); CHLORIDE 95 mEq/L (98-107); CREATININE - SERUM 0.6 mg/dL (0.7-1.3); GFR AFRICAN-AMERICAN > 60.0 ml/min (>90); GFR NON AFRICAN-AMERICAN > 60.0 ml/min; GLUCOSE 94 mg/dL (70-105); MAGNESIUM 1.8 mg/dL (1.9-2.7); POTASSIUM SERUM 3.9 mEq/L (3.5-5.1); SODIUM SERUM 132 mEq/L (136-145)
[2018-04-09] MEDS: Pantoprazole 40 mg EC Tab PO SCH (06:40)
[2018-04-09] MEDS: Levothyroxine 0.025 Mg Tab PO SCH (06:41)
[2018-04-09] MEDS: Ipratropium Neb 0.5 mg/2.5 mL UD IH SCH ×4 (07:10→19:49)
[2018-04-09] MEDS: Budesonide 0.5 Mg/2 mL Ud HHN SCH ×2 (07:11→19:49)
[2018-04-09] MEDS: Albuterol Nebulizer 2.5mg/3mL HHN SCH ×4 (07:11→19:49)
[2018-04-09] MEDS ORDERED: Diatrizoate Meglumine/Diatri 30 mL Sol PO ONE (08:59)
--- NOTE | 2018-04-09 09:06 | Diagnostic Imaging Report ---
Portable chest x-ray HISTORY: Cough Compared to prior exam of April 07, 2018, accentuation of interstitial markings within the left lower lobe. Early infiltrate is difficult to exclude. IMPRESSION: 1. Accentuation of interstitial markings within the left lower lobe. Early infiltrate cannot be excluded. Clinical correlation and follow-up recommended.
--- NOTE | 2018-04-09 09:11 | GI Progress Note ---
Subjective - Review of Systems Service Date: 04/09/18 Subjective: No overnight events Objective - Results Result Diagrams: 04/09/18 04:20 04/09/18 04:20 Recent Labs: Laboratory Last Values WBC 6.6 Th/cmm (4.8-10.8) 04/09/18 04:20 RBC 4.17 Mil/cmm (4.30-5.70) L 04/09/18 04:20 Hgb 12.6 gm/dL (12-16) 04/09/18 04:20 Hct 37.6 % (41.0-60) L 04/09/18 04:20 MCV 90.1 fl (80-99) 04/09/18 04:20 MCH 30.2 pg (26.0-30.0) H 04/09/18 04:20 MCHC Differential 33.6 pg (28.0-36.0) 04/09/18 04:20 RDW 14.0 % (11.5-20.0) 04/09/18 04:20 Plt Count 201 Th/cmm (150-400) 04/09/18 04:20 MPV 7.5 fl 04/09/18 04:20 Neutrophils % 63.1 % (40.0-80.0) 04/09/18 04:20 Lymphocytes % 21.1 % (20.0-50.0) 04/09/18 04:20 Monocytes % 10.7 % (2.0-10.0) H 04/09/18 04:20 Eosinophils % 4.6 % (0.0-5.0) 04/09/18 04:20 Basophils % 0.5 % (0.0-2.0) 04/09/18 04:20 PT 11.3 SECONDS (9.5-11.5) 04/07/18 04:00 INR 1.09 (0.5-1.4) 04/07/18 04:00 Specimen Source arterial 04/07/18 03:39 Sample Site left brachial 04/07/18 03:39 pH 7.39 (7.35-7.45) 04/07/18 03:39 pCO2 41.8 mmHg (35.0-45.0) 04/07/18 03:39 pO2 60.0 mmHg (80.0-100.0) L 04/07/18 03:39 HCO3 25.1 mEq/L (20.0-26.0) 04/07/18 03:39 Base Excess 0.1 mEq/L (-3.0-3.0) 04/07/18 03:39 O2 Saturation 90.9 % (92.0-100.0) L 04/07/18 03:39 Pasha Test n/a 04/07/18 03:39 Vent Rate n/a 04/07/18 03:39 Inspired O2 28 04/07/18 03:39 Tidal Volume n/a 04/07/18 03:39 PEEP n/a 04/07/18 03:39 Pressure (ins/psv/peep) n/a 04/07/18 03:39 Critical Value abroedel 04/07/18 03:39 Sodium 132 mEq/L (136-145) L 04/09/18 04:20 Potassium 3.9 mEq/L (3.5-5.1) 04/09/18 04:20 Chloride 95 mEq/L (98-107) L 04/09/18 04:20 Carbon Dioxide 33.2 mEq/L (21.0-31.0) H 04/09/18 04:20 Anion Gap 7.7 (7.0-16.0) 04/09/18 04:20 BUN 9 mg/dL (7-25) 04/09/18 04:20 Creatinine 0.6 mg/dL (0.7-1.3) L 04/09/18 04:20 Est GFR ( Amer) > 60.0 ml/min (>90) 04/09/18 04:20 Est GFR (Non-Af Amer) > 60.0 ml/min 04/09/18 04:20 BUN/Creatinine Ratio 15.0 04/09/18 04:20 Glucose 94 mg/dL (70-105) 04/09/18 04:20 Whole Bld Lactic Acid 1.95 mmol/L (0.60-1.99) 04/07/18 07:19 Calcium 9.1 mg/dL (8.6-10.3) 04/09/18 04:20 Phosphorus 2.5 mg/dL (2.5-5.0) 04/08/18 04:35 Magnesium 1.8 mg/dL (1.9-2.7) L 04/09/18 04:20 Total Bilirubin 0.5 mg/dL (0.3-1.0) 04/07/18 04:00 AST 16 U/L (13-39) 04/07/18 04:00 ALT 9 U/L (7-52) 04/07/18 04:00 Alkaline Phosphatase 49 U/L (34-104) 04/07/18 04:00 Ammonia 42 umol/L (16-53) 04/07/18 04:00 Troponin I 0.01 ng/mL (0.01-0.05) 04/07/18 04:00 B-Natriuretic Peptide 43.3 pg/mL (5.0-100.0) 04/09/18 04:20 Total Protein 5.4 gm/dL (6.0-8.3) L 04/07/18 04:00 Albumin 3.1 gm/dL (4.2-5.5) L 04/07/18 04:00 Globulin 2.3 gm/dL 04/07/18 04:00 Albumin/Globulin Ratio 1.4 (1.0-1.8) 04/07/18 04:00 TSH 2.19 uIU/ml (0.34-5.60) 04/07/18 04:00 Urine Source CATH 04/07/18 08:00 Urine Color YELLOW 04/07/18 08:00 Urine Clarity CLOUDY (CLEAR) 04/07/18 08:00 Urine pH 6.0 (4.6 - 8.0) 04/07/18 08:00 Ur Specific [place] >= 1.030 (1.005-1.030) 04/07/18 08:00 Urine Protein 100 mg/dL (NEGATIVE) H 04/07/18 08:00 Urine Glucose (UA) NEGATIVE mg/dL (NEGATIVE) 04/07/18 08:00 Urine Ketones NEGATIVE mg/dL (NEGATIVE) 04/07/18 08:00 Urine Blood MODERATE (NEGATIVE) H 04/07/18 08:00 Urine Nitrate NEGATIVE (NEGATIVE) 04/07/18 08:00 Urine Bilirubin NEGATIVE (NEGATIVE) 04/07/18 08:00 Urine Urobilinogen 0.2 E.U./dL (0.2 - 1.0) 04/07/18 08:00 Ur Leukocyte Esterase SMALL (NEGATIVE) H 04/07/18 08:00 Urine RBC 5-10 /hpf (0-5) H 04/07/18 08:00 Urine WBC 50-100 /hpf (0-5) H 04/07/18 08:00 Ur Epithelial Cells RARE /lpf (FEW) 04/07/18 08:00 Urine Bacteria OCCASIONAL /hpf (NONE SEEN) 04/07/18 08:00 Valproic Acid 49.7 ug/mL (50.0-100.0) L 04/07/18 04:00 - Physical Exam Vitals and I&O: Vital Signs Temp 98.4 F 04/09/18 04:00 Pulse 92 04/09/18 07:11 Resp 18 04/09/18 07:11 BP 148/79 04/09/18 04:00 Pulse Ox 97 04/09/18 07:11 Intake & Output 04/08/18 04/09/18 04/09/18 18:59 06:59 18:59 Intake Total 50 1360 Balance 50 1360 Weight (lbs) 72.439 kg Intake: Intake, IV Amount 50 1000 Cefepime 1 gm In Dextrose 50 5% 50 ml @ 100 mls/hr IV Q12HR [facility] Rx#:[id number] D5-0.45NS 1,000 ml @ 80 1000 mls/hr IV .[id number] [facility] Rx #:[id number] Oral 360 Other: # Voids 2 Weight Source Bedscale Active Medications: Current Medications Acetaminophen (Tylenol) 650 mg PO Q4H PRN PRN Reason: Mild Pain 1-3/ Fever above 101 Stop: 06/06/18 09:53 Albuterol Sulfate (Albuterol 2.5mg/3ml Neb Ud) 2.5 mg HHN QIDRT [facility] Stop: 06/06/18 10:59 Last Admin: 04/09/18 07:11 Dose: 2.5 mg Aspirin (Ecotrin) 81 mg PO DAILY [facility] Stop: 06/07/18 08:59 Last Admin: 04/08/18 10:30 Dose: 81 mg Bisacodyl (Dulcolax 10 Mg Supp) 10 mg RC DAILY PRN PRN Reason: Constipation Stop: 06/06/18 09:53 Budesonide (Pulmicort) 0.5 mg HHN BIDRT [facility] Stop: 06/06/18 18:59 Last Admin: 04/09/18 07:11 Dose: 0.5 mg Divalproex Sodium (Depakote Dr) 250 mg PO TID [facility]; Protocol Stop: 06/06/18 13:59 Last Admin: 04/08/18 21:30 Dose: 250 mg Escitalopram Oxalate (Lexapro) 10 mg PO DAILY [facility]; Protocol Stop: 06/07/18 08:59 Guaifenesin (Robitussin) 200 mg PO Q4HR PRN PRN Reason: Cough or Congestion Stop: 06/06/18 09:53 Cefepime HCl 1 gm/ Dextrose 50 mls @ 100 mls/hr IV Q12HR [facility] Stop: 06/06/18 09:59 Last Admin: 04/08/18 21:28 Dose: 100 mls/hr Dextrose/Sodium Chloride (D5-0.45ns) 1,000 mls @ 80 mls/hr IV .[id number] [facility] Stop: 06/06/18 09:59 Last Admin: 04/09/18 03:29 Dose: 80 mls/hr Ipratropium [place] (Atrovent Neb 0.5mg/2.5ml) 0.5 mg HHN Q2HRT PRN PRN Reason: Shortness of Breath or Wheeze Stop: 06/06/18 09:53 Ipratropium [place] (Atrovent Neb 0.5mg/2.5ml) 0.5 mg IH QIDRT [facility] Stop: 06/06/18 10:59 Last Admin: 04/09/18 07:10 Dose: 0.5 mg Levothyroxine Sodium (Synthroid) 0.025 mg PO QDAC [facility] Stop: 06/07/18 07:29 Last Admin: 04/09/18 06:41 Dose: 0.025 mg Lorazepam (Ativan) 0.5 mg PO Q6HR PRN; Protocol PRN Reason: Agitation Stop: 06/06/18 09:53 Last Admin: 04/08/18 11:48 Dose: 0.5 mg Magnesium Hydroxide (Milk Of Magnesia) 30 ml PO DAILY PRN PRN Reason: Constipation Stop: 06/06/18 09:53 Nitroglycerin (Nitrostat) 0.4 mg SL Q5MIN PRN PRN Reason: Chest Pain Stop: 06/06/18 09:53 Ondansetron HCl (Zofran) 4 mg IV Q8H PRN PRN Reason: Nausea / Vomiting Stop: 06/06/18 09:53 Pantoprazole Sodium (Protonix) 40 mg PO QDAC [facility] Stop: 06/07/18 07:29 Last Admin: 04/09/18 06:40 Dose: 40 mg Quetiapine Fumarate (Seroquel) 100 mg PO TID [facility]; Protocol Stop: 06/06/18 13:59 Sodium Phosphate (Fleet Enema) 135 ml RC DAILY PRN PRN Reason: Constipation Stop: 06/06/18 09:53 Terazosin HCl (Hytrin) 2 mg PO HS [facility] Stop: 06/06/18 20:59 Last Admin: 04/08/18 21:30 Dose: 2 mg Trazodone HCl (Desyrel) 300 mg PO HS [facility] Stop: 06/06/18 20:59 Zolpidem Tartrate (Ambien) 10 mg PO HS PRN PRN Reason: Insomnia Stop: 06/06/18 09:53 Last Admin: 04/09/18 00:59 Dose: 10 mg General: Alert HEENT: Atraumatic Cardiovascular: Regular rate Abdomen: Bowel sounds, Soft, no Tender, no Hepatomegaly, no Splenomegaly, no Distended, no Rebound, no Mass, no Guarding Extremities: no Clubbing, no Cyanosis Skin: no Rash Assessment/Plan - Assessment Assessment: # Hx coffee ground material on pt's mouth # Fever # Dementia At this point, pt has not vomited or shown any evidence of active GI bleed since admission. By report, this was not a large GI bleed event. EGD is not necessary in this setting unless he shows further evidence of GI bleed (ie hematemesis, melena, or more coffee ground material). Treat conservatively with PPI for now Plan: - PPI at bid dosing for 1 month, then descale to daily dosing. Conservative mgmt - diet as tolerated by pt - if any more coffee ground, or any GI bleed, we can perform EGD while here - cont supportive measures as per primary GI to see intermittently, please call with any questions
[2018-04-09] MEDS ORDERED: Mag Sulfate 2gm/50mL Premix 2 GM/50 ML BAG IV ONE (09:20)
--- NOTE | 2018-04-09 12:19 | Internal Medicine Prog Note ---
Internal Medicine Subjective - Subjective Patient seen and examined:: with staff, chart reviewed, other (agitated per staff) Patient is:: asleep, non-verbal, non-interactive, eyes closed, in bed Patient Complaints of:: congestion, cough Per staff patient has:: no adverse event, no episodes of fall, poor appetite Internal Medicine Objective - Results Result Diagrams: 04/09/18 04:20 04/09/18 04:20 Recent Labs: Laboratory Last Values WBC 6.6 Th/cmm (4.8-10.8) 04/09/18 04:20 RBC 4.17 Mil/cmm (4.30-5.70) L 04/09/18 04:20 Hgb 12.6 gm/dL (12-16) 04/09/18 04:20 Hct 37.6 % (41.0-60) L 04/09/18 04:20 MCV 90.1 fl (80-99) 04/09/18 04:20 MCH 30.2 pg (26.0-30.0) H 04/09/18 04:20 MCHC Differential 33.6 pg (28.0-36.0) 04/09/18 04:20 RDW 14.0 % (11.5-20.0) 04/09/18 04:20 Plt Count 201 Th/cmm (150-400) 04/09/18 04:20 MPV 7.5 fl 04/09/18 04:20 Neutrophils % 63.1 % (40.0-80.0) 04/09/18 04:20 Lymphocytes % 21.1 % (20.0-50.0) 04/09/18 04:20 Monocytes % 10.7 % (2.0-10.0) H 04/09/18 04:20 Eosinophils % 4.6 % (0.0-5.0) 04/09/18 04:20 Basophils % 0.5 % (0.0-2.0) 04/09/18 04:20 PT 11.3 SECONDS (9.5-11.5) 04/07/18 04:00 INR 1.09 (0.5-1.4) 04/07/18 04:00 Specimen Source arterial 04/07/18 03:39 Sample Site left brachial 04/07/18 03:39 pH 7.39 (7.35-7.45) 04/07/18 03:39 pCO2 41.8 mmHg (35.0-45.0) 04/07/18 03:39 pO2 60.0 mmHg (80.0-100.0) L 04/07/18 03:39 HCO3 25.1 mEq/L (20.0-26.0) 04/07/18 03:39 Base Excess 0.1 mEq/L (-3.0-3.0) 04/07/18 03:39 O2 Saturation 90.9 % (92.0-100.0) L 04/07/18 03:39 Pasha Test n/a 04/07/18 03:39 Vent Rate n/a 04/07/18 03:39 Inspired O2 28 04/07/18 03:39 Tidal Volume n/a 04/07/18 03:39 PEEP n/a 04/07/18 03:39 Pressure (ins/psv/peep) n/a 04/07/18 03:39 Critical Value abroedel 04/07/18 03:39 Sodium 132 mEq/L (136-145) L 04/09/18 04:20 Potassium 3.9 mEq/L (3.5-5.1) 04/09/18 04:20 Chloride 95 mEq/L (98-107) L 04/09/18 04:20 Carbon Dioxide 33.2 mEq/L (21.0-31.0) H 04/09/18 04:20 Anion Gap 7.7 (7.0-16.0) 04/09/18 04:20 BUN 9 mg/dL (7-25) 04/09/18 04:20 Creatinine 0.6 mg/dL (0.7-1.3) L 04/09/18 04:20 Est GFR ( Amer) > 60.0 ml/min (>90) 04/09/18 04:20 Est GFR (Non-Af Amer) > 60.0 ml/min 04/09/18 04:20 BUN/Creatinine Ratio 15.0 04/09/18 04:20 Glucose 94 mg/dL (70-105) 04/09/18 04:20 Whole Bld Lactic Acid 1.95 mmol/L (0.60-1.99) 04/07/18 07:19 Calcium 9.1 mg/dL (8.6-10.3) 04/09/18 04:20 Phosphorus 2.5 mg/dL (2.5-5.0) 04/08/18 04:35 Magnesium 1.8 mg/dL (1.9-2.7) L 04/09/18 04:20 Total Bilirubin 0.5 mg/dL (0.3-1.0) 04/07/18 04:00 AST 16 U/L (13-39) 04/07/18 04:00 ALT 9 U/L (7-52) 04/07/18 04:00 Alkaline Phosphatase 49 U/L (34-104) 04/07/18 04:00 Ammonia 42 umol/L (16-53) 04/07/18 04:00 Troponin I 0.01 ng/mL (0.01-0.05) 04/07/18 04:00 B-Natriuretic Peptide 43.3 pg/mL (5.0-100.0) 04/09/18 04:20 Total Protein 5.4 gm/dL (6.0-8.3) L 04/07/18 04:00 Albumin 3.1 gm/dL (4.2-5.5) L 04/07/18 04:00 Globulin 2.3 gm/dL 04/07/18 04:00 Albumin/Globulin Ratio 1.4 (1.0-1.8) 04/07/18 04:00 TSH 2.19 uIU/ml (0.34-5.60) 04/07/18 04:00 Urine Source CATH 04/07/18 08:00 Urine Color YELLOW 04/07/18 08:00 Urine Clarity CLOUDY (CLEAR) 04/07/18 08:00 Urine pH 6.0 (4.6 - 8.0) 04/07/18 08:00 Ur Specific [place] >= 1.030 (1.005-1.030) 04/07/18 08:00 Urine Protein 100 mg/dL (NEGATIVE) H 04/07/18 08:00 Urine Glucose (UA) NEGATIVE mg/dL (NEGATIVE) 04/07/18 08:00 Urine Ketones NEGATIVE mg/dL (NEGATIVE) 04/07/18 08:00 Urine Blood MODERATE (NEGATIVE) H 04/07/18 08:00 Urine Nitrate NEGATIVE (NEGATIVE) 04/07/18 08:00 Urine Bilirubin NEGATIVE (NEGATIVE) 04/07/18 08:00 Urine Urobilinogen 0.2 E.U./dL (0.2 - 1.0) 04/07/18 08:00 Ur Leukocyte Esterase SMALL (NEGATIVE) H 04/07/18 08:00 Urine RBC 5-10 /hpf (0-5) H 04/07/18 08:00 Urine WBC 50-100 /hpf (0-5) H 04/07/18 08:00 Ur Epithelial Cells RARE /lpf (FEW) 04/07/18 08:00 Urine Bacteria OCCASIONAL /hpf (NONE SEEN) 04/07/18 08:00 Valproic Acid 49.7 ug/mL (50.0-100.0) L 04/07/18 04:00 - Physical Exam Vitals and I&O: Vital Signs Temp 98.2 F 04/09/18 12:00 Pulse 98 04/09/18 12:00 Resp 18 04/09/18 12:00 BP 151/69 04/09/18 12:00 Pulse Ox 99 04/09/18 12:00 Intake & Output 04/08/18 04/09/18 04/09/18 18:59 06:59 18:59 Intake Total 50 1410 Balance 50 1410 Weight (lbs) 72.439 kg Intake: Intake, IV Amount 50 1050 Cefepime 1 gm In Dextrose 50 50 5% 50 ml @ 100 mls/hr IV Q12HR [facility] Rx#:[id number] D5-0.45NS 1,000 ml @ 80 1000 mls/hr IV .[id number] [facility] Rx #:[id number] Oral 360 Other: # Voids 2 Weight Source Bedscale Active Medications: Current Medications Acetaminophen (Tylenol) 650 mg PO Q4H PRN PRN Reason: Mild Pain 1-3/ Fever above 101 Stop: 06/06/18 09:53 Albuterol Sulfate (Albuterol 2.5mg/3ml Neb Ud) 2.5 mg HHN QIDRT [facility] Stop: 06/06/18 10:59 Last Admin: 04/09/18 10:19 Dose: 2.5 mg Bisacodyl (Dulcolax 10 Mg Supp) 10 mg RC DAILY PRN PRN Reason: Constipation Stop: 06/06/18 09:53 Budesonide (Pulmicort) 0.5 mg HHN BIDRT [facility] Stop: 06/06/18 18:59 Last Admin: 04/09/18 07:11 Dose: 0.5 mg Divalproex Sodium (Depakote Dr) 250 mg PO TID [facility]; Protocol Stop: 06/06/18 13:59 Last Admin: 04/09/18 10:34 Dose: 250 mg Escitalopram Oxalate (Lexapro) 10 mg PO DAILY [facility]; Protocol Stop: 06/07/18 08:59 Guaifenesin (Robitussin) 200 mg PO Q4HR PRN PRN Reason: Cough or Congestion Stop: 06/06/18 09:53 Cefepime HCl 1 gm/ Dextrose 50 mls @ 100 mls/hr IV Q12HR [facility] Stop: 06/06/18 09:59 Last Admin: 04/09/18 10:36 Dose: 100 mls/hr Ipratropium [place] (Atrovent Neb 0.5mg/2.5ml) 0.5 mg HHN Q2HRT PRN PRN Reason: Shortness of Breath or Wheeze Stop: 06/06/18 09:53 Ipratropium [place] (Atrovent Neb 0.5mg/2.5ml) 0.5 mg IH QIDRT [facility] Stop: 06/06/18 10:59 Last Admin: 04/09/18 10:19 Dose: 0.5 mg Levothyroxine Sodium (Synthroid) 0.025 mg PO QDAC [facility] Stop: 06/07/18 07:29 Last Admin: 04/09/18 06:41 Dose: 0.025 mg Lorazepam (Ativan) 0.5 mg PO Q6HR PRN; Protocol PRN Reason: Agitation Stop: 06/06/18 09:53 Last Admin: 04/08/18 11:48 Dose: 0.5 mg Lorazepam (Ativan) 1 mg PO Q6HR PRN; Protocol PRN Reason: Agitation Stop: 06/08/18 09:43 Magnesium Hydroxide (Milk Of Magnesia) 30 ml PO DAILY PRN PRN Reason: Constipation Stop: 06/06/18 09:53 Nitroglycerin (Nitrostat) 0.4 mg SL Q5MIN PRN PRN Reason: Chest Pain Stop: 06/06/18 09:53 Ondansetron HCl (Zofran) 4 mg IV Q8H PRN PRN Reason: Nausea / Vomiting Stop: 06/06/18 09:53 Pantoprazole Sodium (Protonix) 40 mg PO QDAC [facility] Stop: 06/07/18 07:29 Last Admin: 04/09/18 06:40 Dose: 40 mg Quetiapine Fumarate (Seroquel) 100 mg PO TID [facility]; Protocol Stop: 06/06/18 13:59 Sodium Phosphate (Fleet Enema) 135 ml RC DAILY PRN PRN Reason: Constipation Stop: 06/06/18 09:53 Terazosin HCl (Hytrin) 2 mg PO HS [facility] Stop: 06/06/18 20:59 Last Admin: 04/08/18 21:30 Dose: 2 mg Trazodone HCl (Desyrel) 300 mg PO HS [facility] Stop: 06/06/18 20:59 Zolpidem Tartrate (Ambien) 10 mg PO HS PRN PRN Reason: Insomnia Stop: 06/06/18 09:53 Last Admin: 04/09/18 00:59 Dose: 10 mg General: congested, demented HEENT: NC/AT, PERRLA Neck: Supple, No JVD Lungs: congested, rales Cardiovascular: RRR, Normal S1, Normal S2, with murmur Abdomen: soft, non-tender, globular, non-distended, positive bowel sound Extremities: excoriation, contracture Internal Medicine Assmt/Plan - Assessment Assessment: ASSESSMENT AND PLAN: Fever and urinary tract infection, possible sepsis, possible aspiration, early pneumonia, dysphagia, hypertension, schizoaffective disorder, hyperkalemia, renal insufficiency, possible GI bleeding. - Plan Plan: Continue the patient also on bronchodilator treatment. We will check a chest x-ray. Continue IV antibiotic. We will follow the patient's urine culture as well. We will perform chest x-ray in the morning. Continue with current care. We will follow consultants' recommendations. We will refer the patient to Psychiatry as well.
[2018-04-09] MEDS ORDERED: D5-0.45NS 1,000 ML IV SCH (12:30)
[2018-04-10] MEDS: Levothyroxine 0.025 Mg Tab PO SCH (06:32)
[2018-04-10] MEDS: Pantoprazole 40 mg EC Tab PO SCH (06:33)
[2018-04-10] MEDS: Ipratropium Neb 0.5 mg/2.5 mL UD IH SCH ×4 (06:43→19:01)
[2018-04-10] MEDS: Budesonide 0.5 Mg/2 mL Ud HHN SCH ×2 (06:43→19:01)
[2018-04-10] MEDS: Albuterol Nebulizer 2.5mg/3mL HHN SCH ×4 (06:43→19:01)
[2018-04-10 08:15] LABS: ANION GAP 8.8 (7.0-16.0); BUN - UREA NITROGEN 12 mg/dL (7-25); CALCIUM SERUM 9.2 mg/dL (8.6-10.3); CARBON DIOXIDE 32.4 mEq/L (21.0-31.0); CHLORIDE 98 mEq/L (98-107); CREATININE - SERUM 0.8 mg/dL (0.7-1.3); GFR AFRICAN-AMERICAN > 60.0 ml/min (>90); GFR NON AFRICAN-AMERICAN > 60.0 ml/min; GLUCOSE 102 mg/dL (70-105); MAGNESIUM 2.1 mg/dL (1.9-2.7); POTASSIUM SERUM 4.2 mEq/L (3.5-5.1); SODIUM SERUM 135 mEq/L (136-145)
--- NOTE | 2018-04-10 14:05 | Internal Medicine Prog Note ---
Internal Medicine Subjective - Subjective Service Date: 04/10/18 Patient is:: asleep, non-verbal, non-interactive, eyes closed, in bed Patient Complaints of:: congestion, cough Per staff patient has:: no adverse event, no episodes of fall, poor appetite Internal Medicine Objective - Results Result Diagrams: 04/09/18 04:20 04/10/18 07:05 Recent Labs: Laboratory Last Values WBC 6.6 Th/cmm (4.8-10.8) 04/09/18 04:20 RBC 4.17 Mil/cmm (4.30-5.70) L 04/09/18 04:20 Hgb 12.6 gm/dL (12-16) 04/09/18 04:20 Hct 37.6 % (41.0-60) L 04/09/18 04:20 MCV 90.1 fl (80-99) 04/09/18 04:20 MCH 30.2 pg (26.0-30.0) H 04/09/18 04:20 MCHC Differential 33.6 pg (28.0-36.0) 04/09/18 04:20 RDW 14.0 % (11.5-20.0) 04/09/18 04:20 Plt Count 201 Th/cmm (150-400) 04/09/18 04:20 MPV 7.5 fl 04/09/18 04:20 Neutrophils % 63.1 % (40.0-80.0) 04/09/18 04:20 Lymphocytes % 21.1 % (20.0-50.0) 04/09/18 04:20 Monocytes % 10.7 % (2.0-10.0) H 04/09/18 04:20 Eosinophils % 4.6 % (0.0-5.0) 04/09/18 04:20 Basophils % 0.5 % (0.0-2.0) 04/09/18 04:20 PT 11.3 SECONDS (9.5-11.5) 04/07/18 04:00 INR 1.09 (0.5-1.4) 04/07/18 04:00 Specimen Source arterial 04/07/18 03:39 Sample Site left brachial 04/07/18 03:39 pH 7.39 (7.35-7.45) 04/07/18 03:39 pCO2 41.8 mmHg (35.0-45.0) 04/07/18 03:39 pO2 60.0 mmHg (80.0-100.0) L 04/07/18 03:39 HCO3 25.1 mEq/L (20.0-26.0) 04/07/18 03:39 Base Excess 0.1 mEq/L (-3.0-3.0) 04/07/18 03:39 O2 Saturation 90.9 % (92.0-100.0) L 04/07/18 03:39 Pasha Test n/a 04/07/18 03:39 Vent Rate n/a 04/07/18 03:39 Inspired O2 28 04/07/18 03:39 Tidal Volume n/a 04/07/18 03:39 PEEP n/a 04/07/18 03:39 Pressure (ins/psv/peep) n/a 04/07/18 03:39 Critical Value abroedel 04/07/18 03:39 Sodium 135 mEq/L (136-145) L 04/10/18 07:05 Potassium 4.2 mEq/L (3.5-5.1) 04/10/18 07:05 Chloride 98 mEq/L (98-107) 04/10/18 07:05 Carbon Dioxide 32.4 mEq/L (21.0-31.0) H 04/10/18 07:05 Anion Gap 8.8 (7.0-16.0) 04/10/18 07:05 BUN 12 mg/dL (7-25) 04/10/18 07:05 Creatinine 0.8 mg/dL (0.7-1.3) 04/10/18 07:05 Est GFR ( Amer) > 60.0 ml/min (>90) 04/10/18 07:05 Est GFR (Non-Af Amer) > 60.0 ml/min 04/10/18 07:05 BUN/Creatinine Ratio 15.0 04/10/18 07:05 Glucose 102 mg/dL (70-105) 04/10/18 07:05 Whole Bld Lactic Acid 1.95 mmol/L (0.60-1.99) 04/07/18 07:19 Calcium 9.2 mg/dL (8.6-10.3) 04/10/18 07:05 Phosphorus 2.5 mg/dL (2.5-5.0) 04/08/18 04:35 Magnesium 2.1 mg/dL (1.9-2.7) 04/10/18 07:05 Total Bilirubin 0.5 mg/dL (0.3-1.0) 04/07/18 04:00 AST 16 U/L (13-39) 04/07/18 04:00 ALT 9 U/L (7-52) 04/07/18 04:00 Alkaline Phosphatase 49 U/L (34-104) 04/07/18 04:00 Ammonia 51 umol/L (16-53) 04/10/18 07:05 Troponin I 0.01 ng/mL (0.01-0.05) 04/07/18 04:00 B-Natriuretic Peptide 22.9 pg/mL (5.0-100.0) 04/10/18 07:05 Total Protein 5.4 gm/dL (6.0-8.3) L 04/07/18 04:00 Albumin 3.1 gm/dL (4.2-5.5) L 04/07/18 04:00 Globulin 2.3 gm/dL 04/07/18 04:00 Albumin/Globulin Ratio 1.4 (1.0-1.8) 04/07/18 04:00 TSH 2.19 uIU/ml (0.34-5.60) 04/07/18 04:00 Urine Source CATH 04/07/18 08:00 Urine Color YELLOW 04/07/18 08:00 Urine Clarity CLOUDY (CLEAR) 04/07/18 08:00 Urine pH 6.0 (4.6 - 8.0) 04/07/18 08:00 Ur Specific [place] >= 1.030 (1.005-1.030) 04/07/18 08:00 Urine Protein 100 mg/dL (NEGATIVE) H 04/07/18 08:00 Urine Glucose (UA) NEGATIVE mg/dL (NEGATIVE) 04/07/18 08:00 Urine Ketones NEGATIVE mg/dL (NEGATIVE) 04/07/18 08:00 Urine Blood MODERATE (NEGATIVE) H 04/07/18 08:00 Urine Nitrate NEGATIVE (NEGATIVE) 04/07/18 08:00 Urine Bilirubin NEGATIVE (NEGATIVE) 04/07/18 08:00 Urine Urobilinogen 0.2 E.U./dL (0.2 - 1.0) 04/07/18 08:00 Ur Leukocyte Esterase SMALL (NEGATIVE) H 04/07/18 08:00 Urine RBC 5-10 /hpf (0-5) H 04/07/18 08:00 Urine WBC 50-100 /hpf (0-5) H 04/07/18 08:00 Ur Epithelial Cells RARE /lpf (FEW) 04/07/18 08:00 Urine Bacteria OCCASIONAL /hpf (NONE SEEN) 04/07/18 08:00 Valproic Acid 49.7 ug/mL (50.0-100.0) L 04/07/18 04:00 - Physical Exam Vitals and I&O: Vital Signs Temp 97.9 F 04/10/18 12:00 Pulse 100 04/10/18 12:00 Resp 18 04/10/18 12:00 BP 160/94 04/10/18 12:00 Pulse Ox 95 04/10/18 12:00 Intake & Output 04/09/18 04/10/18 04/10/18 18:59 06:59 18:59 Intake Total 410 150 200 Balance 410 150 200 Weight (lbs) 159 lb 158 lb 9 oz 158 lb 9 oz Intake: Intake, IV Amount 50 50 Cefepime 1 gm In Dextrose 50 50 5% 50 ml @ 100 mls/hr IV Q12HR [facility] Rx#:[id number] Oral 360 100 200 Other: # Voids 3 3 1 # Bowel Movements 2 1 0 Stool Characteristics Formed Formed Weight Source Bedscale Bedscale Bedscale Active Medications: Current Medications Acetaminophen (Tylenol) 650 mg PO Q4H PRN PRN Reason: Mild Pain 1-3/ Fever above 101 Stop: 06/06/18 09:53 Last Admin: 04/10/18 03:22 Dose: 650 mg Albuterol Sulfate (Albuterol 2.5mg/3ml Neb Ud) 2.5 mg HHN QIDRT [facility] Stop: 06/06/18 10:59 Last Admin: 04/10/18 10:47 Dose: 2.5 mg Bisacodyl (Dulcolax 10 Mg Supp) 10 mg RC DAILY PRN PRN Reason: Constipation Stop: 06/06/18 09:53 Budesonide (Pulmicort) 0.5 mg HHN BIDRT [facility] Stop: 06/06/18 18:59 Last Admin: 04/10/18 06:43 Dose: 0.5 mg Divalproex Sodium (Depakote Dr) 250 mg PO TID [facility]; Protocol Stop: 06/06/18 13:59 Escitalopram Oxalate (Lexapro) 10 mg PO DAILY [facility]; Protocol Stop: 06/07/18 08:59 Guaifenesin (Robitussin) 200 mg PO Q4HR PRN PRN Reason: Cough or Congestion Stop: 06/06/18 09:53 Last Admin: 04/10/18 03:21 Dose: 200 mg Cefepime HCl 1 gm/ Dextrose 50 mls @ 100 mls/hr IV Q12HR [facility] Stop: 06/06/18 09:59 Last Admin: 04/10/18 08:04 Dose: 100 mls/hr Dextrose/Sodium Chloride (D5-0.45ns) 1,000 mls @ 60 mls/hr IV .[id number] [facility] Stop: 06/08/18 12:29 Last Admin: 04/09/18 21:02 Dose: 60 mls/hr Ipratropium [place] (Atrovent Neb 0.5mg/2.5ml) 0.5 mg HHN Q2HRT PRN PRN Reason: Shortness of Breath or Wheeze Stop: 06/06/18 09:53 Ipratropium [place] (Atrovent Neb 0.5mg/2.5ml) 0.5 mg IH QIDRT [facility] Stop: 06/06/18 10:59 Last Admin: 04/10/18 10:47 Dose: 0.5 mg Levothyroxine Sodium (Synthroid) 0.025 mg PO QDAC [facility] Stop: 06/07/18 07:29 Last Admin: 04/10/18 06:32 Dose: 0.025 mg Lorazepam (Ativan) 1 mg PO Q6HR PRN; Protocol PRN Reason: Agitation Stop: 06/08/18 09:43 Last Admin: 04/10/18 08:35 Dose: 1 mg Magnesium Hydroxide (Milk Of Magnesia) 30 ml PO DAILY PRN PRN Reason: Constipation Stop: 06/06/18 09:53 Nitroglycerin (Nitrostat) 0.4 mg SL Q5MIN PRN PRN Reason: Chest Pain Stop: 06/06/18 09:53 Ondansetron HCl (Zofran) 4 mg IV Q8H PRN PRN Reason: Nausea / Vomiting Stop: 06/06/18 09:53 Pantoprazole Sodium (Protonix) 40 mg PO QDAC [facility] Stop: 06/07/18 07:29 Last Admin: 04/10/18 06:33 Dose: 40 mg Quetiapine Fumarate (Seroquel) 100 mg PO TID [facility]; Protocol Stop: 06/06/18 13:59 Sodium Phosphate (Fleet Enema) 135 ml RC DAILY PRN PRN Reason: Constipation Stop: 06/06/18 09:53 Terazosin HCl (Hytrin) 2 mg PO HS [facility] Stop: 06/06/18 20:59 Last Admin: 04/09/18 20:51 Dose: 2 mg Trazodone HCl (Desyrel) 300 mg PO HS [facility] Stop: 06/06/18 20:59 Zolpidem Tartrate (Ambien) 10 mg PO HS PRN PRN Reason: Insomnia Stop: 06/06/18 09:53 Last Admin: 04/09/18 22:43 Dose: 10 mg General: congested, demented HEENT: NC/AT, PERRLA Neck: Supple, No JVD Lungs: congested, rales Cardiovascular: RRR, Normal S1, Normal S2, with murmur Abdomen: soft, non-tender, globular, non-distended, positive bowel sound Extremities: excoriation, contracture Internal Medicine Assmt/Plan - Assessment Assessment: Fever and urinary tract infection, possible sepsis, possible aspiration, early pneumonia, dysphagia, hypertension, schizoaffective disorder, hyperkalemia, renal insufficiency, possible GI bleeding. - Plan Plan: Continue the patient also on bronchodilator treatment. Continue IV antibiotic. Continue with current care. We will follow consultants' recommendations. We will refer the patient to Psychiatry as well.
--- NOTE | 2018-04-10 15:16 | Consultation ---
DATE OF CONSULTATION: 04/09/2018 HISTORY OF PRESENT ILLNESS: A 62-year-old male essentially AO to name only, known to Dr. Gautam, apparently discharged from a nursing facility coming in for low oxygen saturation. The patient is not verbal, not interactive, not really saying anything. No cognitive behavioral disturbances. No agitation. Not answering any questions whatsoever. The only thing he asks me for "a coke", that is the only interaction that we have. PAST PSYCHIATRIC HISTORY: Seems that he may be cognitively impaired. History of schizoaffective disorder. PAST MEDICAL HISTORY: Please see full H and P. SOCIAL HISTORY: Coming in from a half-way facility. MEDICATIONS: Noted. MENTAL STATUS EXAMINATION: Stated age. Fair eye contact, mildly lethargic. Mood not answering. Affect flat. Thought processes disoriented. No overt SI or HI. No current psychotic symptoms. PROVISIONAL DIAGNOSIS: Schizoaffective disorder per history. Unclear history of cognitive decline and impairment. It is unclear if he has an overlying delirium. MEDICAL: Please see full H and P. RECOMMENDATIONS AND PLAN: Continue Seroquel. The patient is somewhat tired at this time. We will need to follow up at a later time. Avoid anticholinergics, avoid benzodiazepines, and avoid opiates if possible. [facility]# [id number]
[2018-04-11 06:20] LABS: % BASOPHILS 0.8 % (0.0-2.0); % EOSINOPHILS 2.1 % (0.0-5.0); % LYMPHOCYTES 24.7 % (20.0-50.0); % MONOCYTES 11.9 % (2.0-10.0); % NEUTROPHILS 60.5 % (40.0-80.0); BASOPHILE ABSOLUTE 0.1 Th/cumm (0-0.2); EOSINOPHILE ABSOLUTE 0.1 Th/cmm (0.1-0.4); HEMATOCRIT 39.3 % (41.0-60); HEMOGLOBIN 12.8 gm/dL (12-16); LYMPHOCYTE ABSOLUTE 1.7 Th/cmm (1.5-3.0); MEAN CELL VOLUME 90.8 fl (80-99); MEAN CORPUSCULAR HEMOGLOBIN 29.5 pg (26.0-30.0); MEAN CORPUSCULAR HGB CONC 32.5 pg (28.0-36.0); MEAN PLATELET VOLUME 7.1 fl; MONOCYTE ABSOLUTE 0.8 Th/cmm (0.3-1.0); PLATELET COUNT 276 Th/cmm (150-400); RED BLOOD COUNT 4.33 Mil/cmm (4.30-5.70); RED CELL DISTRIBUTION WIDTH 13.6 % (11.5-20.0); WHITE BLOOD COUNT 6.7 Th/cmm (4.8-10.8)
[2018-04-11] MEDS: Ipratropium Neb 0.5 mg/2.5 mL UD IH SCH ×4 (07:26→18:54)
[2018-04-11] MEDS: Albuterol Nebulizer 2.5mg/3mL HHN SCH ×4 (07:26→18:54)
[2018-04-11] MEDS: Budesonide 0.5 Mg/2 mL Ud HHN SCH ×2 (07:33→18:54)
[2018-04-11] MEDS: Levothyroxine 0.025 Mg Tab PO SCH (07:55)
[2018-04-11] MEDS: Pantoprazole 40 mg EC Tab PO SCH (07:55)
[2018-04-11 08:30] LABS: ANION GAP 13.6 (7.0-16.0); BUN - UREA NITROGEN 10 mg/dL (7-25); CALCIUM SERUM 9.6 mg/dL (8.6-10.3); CARBON DIOXIDE 28.3 mEq/L (21.0-31.0); CHLORIDE 99 mEq/L (98-107); CREATININE - SERUM 0.8 mg/dL (0.7-1.3); GFR AFRICAN-AMERICAN > 60.0 ml/min (>90); GFR NON AFRICAN-AMERICAN > 60.0 ml/min; GLUCOSE 88 mg/dL (70-105); POTASSIUM SERUM 3.9 mEq/L (3.5-5.1); SODIUM SERUM 137 mEq/L (136-145)
--- NOTE | 2018-04-11 11:14 | Progress Notes ---
DATE: 04/10/2018 CANCELLED DICTATION JOB# [id number]
--- NOTE | 2018-04-11 11:33 | Progress Notes ---
DATE: 04/10/2018 SUBJECTIVE: The patient aggressive, agitated, screaming, yelling for no apparent reason, trying to go to the bed, given Ativan, very lethargic at this time, poor historian, pretty confused and I saw him yesterday. ASSESSMENT: The patient disoriented, disengaged, ongoing safety concerns, concerns about impulsivities. PLAN: I will continue to monitor. I will be titrating his dose of medications and agree with Dr. Gautam to transfer to the Geropsych Unit for further care on stabilization. JOB# [id number]
--- NOTE | 2018-04-11 14:54 | Discharge Summary ---
DATE OF DISCHARGE: 04/11/2018 CHIEF COMPLAINT: Fever and coffee-ground emesis. FINAL DIAGNOSES: 1. Urinary tract infection. 2. History of coffee-ground emesis. 3. Fever. 4. Dysphagia. 5. Hypertension. 6. Schizoaffective disorder. 7. Renal insufficiency. 8. Bed-bound. HISTORY: This is a 62-year-old male who is brought in back secondary to fever of 101 with low oxygen saturation. There was a question of aspiration. The patient is admitted for further management. PHYSICAL EXAMINATION: VITAL SIGNS: Blood pressure 154/90, respirations 18, pulse 80, temperature 98.7. GENERAL: Elderly male, appears his stated age. NECK: Supple. No mass. LUNGS: Equal breath sounds. A few rhonchi. HEART: Regular rate and rhythm with a systolic ejection murmur. ABDOMEN: Soft, globular. EXTREMITIES: Positive excoriation. NEUROLOGIC: Limited. HOSPITAL COURSE: The patient was admitted to telemetry. Continued on oxygen, bronchodilator treatments. O2 saturation on admission was pCO2 of 60. The patient was referred to Dr. Ellis for GI, recommended for endoscopy, and Dr. Malhotra for Psychiatry. His psychotropic medications were adjusted. The patient to be discharged on antibiotic for ____ care. CONDITION ON DISCHARGE: Fair. DISCHARGE INSTRUCTIONS: The patient is to continue with current regimen. We will sign out the patient to ____ who will be following the patient at the nursing facility. JOB# [id number]
== END 2018-04-11 19:20 | DRG 871 ==
LOC: ER 03:21 → TELE 09:02 → MSI 04-10 17:24
PROVIDERS: ADMIT Internal Medicine; ATTEND Internal Medicine
DX: A41.9 Sepsis, unspecified organism (principal); J69.0 Pneumonitis due to inhalation of food and vomit; J96.01 Acute respiratory failure with hypoxia; K92.2 Gastrointestinal hemorrhage, unspecified; N39.0 Urinary tract infection, site not specified; I10 Essential (primary) hypertension; E78.5 Hyperlipidemia, unspecified; R56.9 Unspecified convulsions; F03.90 Unspecified dementia, unspecified severity, without behavioral disturbance, psychotic disturbance, mood disturbance, and anxiety; E03.9 Hypothyroidism, unspecified; F29 Unspecified psychosis not due to a substance or known physiological condition; R13.10 Dysphagia, unspecified; F25.9 Schizoaffective disorder, unspecified; E87.5 Hyperkalemia; N28.9 Disorder of kidney and ureter, unspecified; Z74.01 Bed confinement status
CPT/HCPCS: 36415-UA; 36600-90; 71045-TC; 80048-TC; 80053-TC; 80164-TC; 81001-TC; 82140-TC; 82803-TC; 83605; 83735-TC; 83880-TC; 84100-TC; 84443-TC; 84484-TC; 85025-TC; 85610-TC; 87086-90; 90779; 90799; 93005; 94640; 94760; 96375; C9113; J0692; J0696; J1630; J2060; J2405; J3475; J3490; J7613; X3401; Z7610